=== PATIENT | male | born 1995 | race American Indian/Alaskan Native ===

== ENCOUNTER 2025-03-05 23:39 | Emergency (ER) | payer SELFPAY ==
[2025-03-05 23:40] VITALS: PULSE 90; RESP 17; O2SAT 98
[2025-03-06 00:22] VITALS: BP 159/110; PULSE 90; RESP 19; TEMP 36.8; O2SAT 92
--- NOTE | 2025-03-06 00:23 | PD.EDRME ---
Rapid Medical Screening Exam RME Arrival date/time: 03/05/25 23:39 30 yo m present to ED for c/o of headache, nausea, abd pain, last alcohol drink was 2 days ago, trying to quit I have greeted and performed a focused initial assessment of this patient. A comprehensive ED assessment and evaluation of the patient, analysis of all test results, and completion of the medical decision making process will be conducted by additional ED providers. Chief Complaint: Nausea/Vomiting/Diarrhea Time Seen by Provider: 03/05/25 23:48
[2025-03-06 00:24] VITALS: BMI 36.2
--- NOTE | 2025-03-06 00:24 | EKG_ITS ---
[facility] Test Date: 2025-03-06 Pat Name: TOPHER CORDOVA Department: Room: - Gender: Male Pricing Specialist: : 1995 Requested By: Topher García Order Number: [id number] Reading MD: Topher García Measurements Intervals Dixon Rate: 93 P: 48 ME: 144 QRS: 55 QRSD: 89 T: 50 QT: 344 QTc: 428 Interpretive Statements SINUS RHYTHM WITH SINUS ARRHYTHMIA No previous ECG available for comparison /store/S0/[id number].pdf
--- NOTE | 2025-03-06 00:59 | EDNOTE_ITS ---
ED Headache RME/HPI General Chief Complaint: Nausea/Vomiting/Diarrhea Stated Complaint: NAUSEA Time Seen by Provider: 03/05/25 23:48 Arrival date/time: 03/05/25 23:39 RME / HPI RME / HPI Narrative: 03/05/25 23:39 30 yo m present to ED for c/o of headache, nausea, abd pain, last alcohol drink was 2 days ago, trying to quit I have greeted and performed a focused initial assessment of this patient. A comprehensive ED assessment and evaluation of the patient, analysis of all test results, and completion of the medical decision making process will be conducted by additional ED providers. This section includes all my notes and documentations, including HPI, PE, and ED course. Darshan Hair MD HPI: 30 y/o male presents to ED c/o nausea and headache x 2 hours. Patients thinks it may be due to stress or not drinking enough water. Reports throbbing with photophobia and phonophobia. Feels like previous migraine headaches. No other complaints. ROS: All negative except as documented in HPI. Physical Exam: General: Alert and oriented. Appears uncomfortable. Eyes: Conjunctivae and lids clear. EOMI. PERRL. ENT: No nasal congestion. Pharynx normal. Tympanic membrane normal bilaterally. Neck: Supple. Heart: RRR. Lungs: No respiratory distress. Good air movement. No rhonchi, wheezing, rales. Chest: No tenderness. Abdomen: Soft and nontender. Normal bowel sounds. No distension. No rebound or guarding. Back: No CVA tenderness. Legs: No clubbing, cyanosis, edema. Skin: Warm and dry. Neuro: Alert and oriented X 3. Cranial Nerves II-XII grossly intact. No peripheral motor deficits. I reviewed all diagnostic test results. My interpretation of the EKG is sinus rhythm with no ST-T changes (ordered by LIO). At this point, diagnoses include migraine headache. Treatment here included Tylenol w/ Codeine and Zofran. Significant improvement noted. Based on my best medical judgment, made decision no further evaluation or treatment indicated at this time. Patient understands and agrees to the discharge instructions customized and printed, see below. Discharge Instructions from Dr. Hair: --After evaluation, you were treated for a migraine headache.? --When you get home, try to get some rest in the dark.? This can be the best treatment for migraine headache. --Try to eat regular nutritious meals, maintain good hydration, decrease stress, and get regular physical exercise.? Increase oral fluid and maintain clear urine.? If dark or yellow, increase oral fluid. --Take Zofran for nausea.? With migraines, controlling your nausea as soon as po ssible can help. --Take Imitrex as needed.? This works better if you take it at the onset of a migraine headache. Tylenol with codeine for severe pain. --See a private doctor of your choice on for recheck and further care. Ask to consider a referral to see a neurologist. --Read attached patient handout and seek immediate medical care with worsening or with any concerns.? Darshan Hair MD Related Data Previous Rx's ?Medication ?Instructions ?Recorded clindamycin HCl 300 mg capsule 300 mg PO Q8H #21 caps 10/05/23 acetaminophen 300 mg-codeine 30 mg 2 tab PO Q8H PRN pa in #10 tabs 03/06/25 tablet ondansetron 4 mg disintegrating 4 mg PO TID PRN nausea and 03/06/25 tablet vomiting 30 days #10 tabs sumatriptan succinate 25 mg tablet 25 mg PO Q2H PRN mi graine headache 03/06/25 (Imitrex) #10 tabs Allergies Allergy/AdvReac Type Severity Reaction Status Date / Time No Known Allergies Allergy Verified 10/05/23 14:49 Review of Systems Review of Systems Systems Reviewed: All systems reviewed, normal except as documented Narrative Review of Systems: Refer to HPI above. Past Medical History Social History SMOKING STATUS: Current every day smoker ED Exam Narrative Physical exam: Refer to HPI above. Course Quality Measures none Orders Category Date Time Status EKG (ED Only) Stat Exams 03/06/25 00:24 Draft ACETAMINOPHEN w/COD 300-30 [Tylenol w/Cod #3] Med 03/06/25 00:58 Discontinued 2 tab PO X1 ONE Ondansetron Inj [Zofran Inj] Med 03/06/25 00:23 Discontinued 4 mg IV X1 ONE Ondansetron Odt [Zofran Odt] Med 03/06/25 00:58 Discontinued 4 mg PO X1 ONE SUMAtriptan [Imitrex] Med 03/06/25 00:58 Discontinued 50 mg PO X1 ONE Sodium Chloride 0.9% 1000 ml [Ns] 1,000 ml Med 03/06/25 00:24 Discontinued IV 999 mls/hr Vital Signs Vital signs: Vital Signs Temperature 98.3 F 03/06/25 00:22 Pulse Rate 90 03/06/25 00:22 Respiratory Rate 19 03/06/25 00:22 Blood Pressure 159/110 H 03/06/25 00:22 Pulse Oximetry (%) 92 L 03/06/25 00:22 Oxygen Delivery Method Room Air 03/06/25 00:22 Headache MDM Narrative MDM Narrative:: Scribe Attestation: Carmen Gusman am scribing for and in the presence of Dr. Hair. Provider Notation: Although this document has been carefully reviewed, there may still be some phonetic and other typographical errors. These errors are purely grammatical due to imperfections in the software program and should not be construed in any way to compromise the substance of the patient's medical care during this visit. 30 y/o male presents to ED c/o nausea and headache x 2 hours. Patient data External records reviewed:: [facility] previous records ( Prior ED records reviewed from 10/05/23. Patient was seen for Peritonsillar cellulitis.) Clinical information provided by:: patient Social determinants that could affect healthcare access:: none Patient has the following chronic illnesses:: None reported. How is presenting disease/condition affected by chronic disease/condition?: no chronic disease (None reported.) Evaluation data The following diagnostics were reviewed and interpreted by me:: EKG tracing(s) Lab and/or radiology exams considered but not ordered:: None. Interpretation Summary: Normal EKG. Medications / Prescriptions Medications or Prescriptions considered but not ordered:: None Medication administrations:: Medication Administration History Discontinued Medications Acetaminophen/Codeine Phosphate (Acetaminophen W/Cod 300-30 Tablet) 2 tab PO X1 ONE Stop: 03/06/25 00:59 Last Admin: 03/06/25 01:23 Dose: 2 tab Documented By: KELLIE Sodium Chloride (Ns) 1,000 mls @ 999 mls/hr IV .Q1H1M ONE Stop: 03/06/25 01:24 Last Admin: 03/06/25 00:37 Dose: Not Given Documented By: CVL Non-Admin Reason: Cancelled by Provider Ondansetron HCl (Ondansetron Inj 2 Mg/Ml Inj 2 Ml) 4 mg IV X1 ONE; Protocol Stop: 03/06/25 00:24 Last Admin: 03/06/25 00:37 Dose: Not Given Documented By: CVL Non-Admin Reason: Cancelled by Provider Ondansetron HCl (Ondansetron Odt 4 Mg Tabrap) 4 mg PO X1 ONE; Protocol Stop: 03/06/25 00:59 Last Admin: 03/06/25 01:23 Dose: 4 mg Documented By: KELLIE Sumatriptan Succinate (Sumatriptan 25 Mg Tablet) 50 mg PO X1 ONE Stop: 03/06/25 00:59 Last Admin: 03/06/25 01:33 Dose: Not Given Documented By: KF Non-Admin Reason: Medication Not Available Tylenol w/ Codeine and Zofran Consultations Consultation(s) initiated? (list below): No Diagnosis Differential diagnosis headache: migraine, tension headache and headache Most likely diagnosis given after review of the tests above:: Migraine headache Admission Indicated Admission indicated?: not indicated Explain why admission is indicated or not indicated:: There was no indication for admission after significant improvement. Admission Request Was there a request for admission?: No Disposition Plan Disposition Plan: Discharge Discharge Attestation Discharge Attestation: The patient and all family members were given an opportunity to ask questions and understood the discharge instructions. Discharge instructions specifically effects, indications for sooner follow up or return to the emergency department, and the expected course of current diagnosis. Patient condition: Stable Discharge Plan Plan Patient Disposition: HOME (Self Care) Prescriptions/Referrals Prescriptions/Med Rec: New sumatriptan succinate [Imitrex] 25 mg tablet 25 mg PO Q2H PRN (Reason: migraine headache) Qty: 10 0RF Rx Instructions: do not exceed 8 doses per 24 hrs acetaminophen-codeine 300-30 mg tablet 2 tab PO Q8H MDD 6 PRN (Reason: pain) Qty: 10 0RF ondansetron 4 mg tablet,disintegrating 4 mg PO TID PRN (Reason: nausea and vomiting) 30 Days Qty: 10 0RF No Action clindamycin HCl 300 mg capsule 300 mg PO Q8H Qty: 21 0RF Referrals: No Primary/Family,Physician [Primary Care Provider] - In 1 week Problem List Clinical Impression: Migraine headache Patient/Caregiver Discharge Instructions Discharge Activity: activity as tolerated Education Materials: ED Headache, Migraine, Classic Additional Instructions: Discharge Instructions from Dr. Hair: --After evaluation, you were treated for a migraine headache.? --When you get home, try to get some rest in the dark.? This can be the best treatment for migraine headache. --Try to eat regular nutritious meals, maintain good hydration, decrease stress, and get regular physical exercise.? Increase oral fluid and maintain clear urine.? If dark or yellow, increase oral fluid. --Take Zofran for nausea.? With migraines, controlling your nausea as soon as possible can help. --Take Imitrex as needed.? This works better if you take it at the onset of a migraine headache. Tylenol with codeine for severe pain. --See a private doctor of your choice on for recheck and further care. Ask to consider a referral to see a neurologist. --Read attached patient handout and seek immediate medical care with worsening or with any concerns.? Print Language: Slovenian Stand Alone Forms: Neisha Award Info., Patient Portal Info Letter
[2025-03-06] MEDS: ONDANSETRON ODT 4 MG TABRAP PO (01:23)
[2025-03-06] MEDS: ACETAMINOPHEN w/COD 300-30 TABLET 2 TAB PO (01:23)
[2025-03-06 02:25] VITALS: RESP 16
== END 2025-03-06 02:26 | disposition home or self-care (01) ==
PROVIDERS: Emergency Provider Emergency Medicine
DX: G43.909 Migraine, unspecified, not intractable, without status migrainosus (principal)
CPT/HCPCS: 80053; 80307; 80320; 83690; 83735; 83880; 84484; 85025; 93005; 99283; Q0162; A9270; G0480

== ENCOUNTER 2025-05-05 12:39 | Emergency (ER) | payer SELFPAY ==
[2025-05-05 12:55] VITALS: BP 116/85; PULSE 100; RESP 17; TEMP 36.7; O2SAT 97; BMI 33.5
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
== END 2025-05-05 18:20 | disposition home or self-care (01) ==
PROVIDERS: Emergency Provider Emergency Medicine; PCP Physician Assistant
DX: S13.4XXA Sprain of ligaments of cervical spine, initial encounter (principal); S09.90XA Unspecified injury of head, initial encounter; S29.9XXA Unspecified injury of thorax, initial encounter; S39.91XA Unspecified injury of abdomen, initial encounter; V89.2XXA Person injured in unspecified motor-vehicle accident, traffic, initial encounter
CPT/HCPCS: 70450; 71250; 72125; 74176; 99284

== ENCOUNTER 2025-05-28 07:51 | Emergency (ER) | payer MEDICAID, SELFPAY ==
[2025-05-28 07:59] VITALS: BP 143/95; PULSE 71; RESP 18; TEMP 37.6; O2SAT 95; BMI 35.3
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
== END 2025-05-28 08:30 | disposition home or self-care (01) ==
LOC: SERX 08:50
PROVIDERS: Emergency Provider Nurse Practitioner Family; PCP Physician Assistant
DX: S01.01XD Laceration without foreign body of scalp, subsequent encounter (principal); V49.9XXD Car occupant (driver) (passenger) injured in unspecified traffic accident, subsequent encounter
CPT/HCPCS: 99284